=== PATIENT | male | born 1950 | race Caucasian/White ===

== ENCOUNTER 2020-08-12 08:15 | Day surgery (SDC) | payer BC ==
[~2020-08-12] VITALS: Ht 185.4 cm; Wt 85.2 kg
[2020-08-12 08:45] VITALS: BP 146/73
[2020-08-12] MEDS ORDERED: ATOR20TA66 PO (08:48)
[2020-08-12] MEDS ORDERED: PANT40TA54 PO (08:48)
[2020-08-12] MEDS ORDERED: RAMI10CA69 PO (08:48)
[2020-08-12] MEDS ORDERED: INSU100I52 (08:52)
[2020-08-12] MEDS ORDERED: LANTUS SQ (08:52)
[2020-08-12] MEDS ORDERED: ASPI-611 PO (08:52)
[2020-08-12] MEDS ORDERED: METO5TAB98 PO (08:52)
[2020-08-12] MEDS ORDERED: normal saline 1000ml 1,000 ML IV SCH ×2 (09:00→09:30)
[2020-08-12] MEDS ORDERED: heparin sodium, porcine/PF 100unit/ml 5ML syringe ONE (09:13)
[2020-08-12] MEDS ORDERED: midazolam 2 mg/2 ml injection ONE ×2 (09:14→10:03)
[2020-08-12] MEDS ORDERED: LIDOcaine 1%/PF 5ML 10 MG/ML VIAL ONE (09:14)
[2020-08-12] MEDS ORDERED: fentaNYL/PF 50MCG/1 ML 2ML syringe ONE ×2 (09:14→10:03)
[2020-08-12 10:31] VITALS: BP 145/81
[2020-08-12 10:46] VITALS: BP 149/76
[2020-08-12 11:01] VITALS: BP 138/73
[2020-08-12 11:16] VITALS: BP 147/78
== END 2020-08-12 11:30 | disposition home or self-care (01) ==
LOC: SSTAY O 08:15
PROVIDERS: ATTEND Radiology Diagnostic Radiology
DX: C22.1 Intrahepatic bile duct carcinoma (principal); E11.319 Type 2 diabetes mellitus with unspecified diabetic retinopathy without macular edema; I10 Essential (primary) hypertension; E78.5 Hyperlipidemia, unspecified; Z98.890 Other specified postprocedural states
CPT/HCPCS: 36415; 36561; 76937; 82948; 87635; C1769; C1788; C1894; J1642; J2250; J3010; 99152; 99153

== ENCOUNTER 2020-09-20 06:27 | Emergency (ER) | payer BC ==
[~2020-09-20] VITALS: Ht 185.4 cm; Wt 85.5 kg
[~2020-09-20 06:27] MED LIST: ASPI-611 PO; ATOR20TA66 PO; INSU100I52; LANTUS SQ; METO5TAB98 PO; PANT40TA54 PO; RAMI10CA69 PO
--- NOTE | 2020-09-20 06:53 | NUR ---
BG 65. Dr. Moran aware. Patient given juice and crackers. Will monitor.
[2020-09-20 08:59] LABS: BASOPHILS % (AUTO) 0.2 % (0-1); EOSINOPHILS % (AUTO) 0.4 % (0-6); HEMATOCRIT 29.9 % (42.0-52.0); HEMOGLOBIN 9.6 g/dl (14.0-17.9); LYMPHOCYTES # (AUTO) 0.1 X10'3 (1.1-4.8); LYMPHOCYTES % (AUTO) 1.4 % (21-51); MEAN CORPUSCULAR HEMOGLOBIN 24.6 PG (27.0-31.0); MEAN CORPUSCULAR HGB CONC 31.9 g/dL (33.0-36.5); MEAN CORPUSCULAR VOLUME 77.1 FL (78-98); MEAN PLATELET VOLUME 8.9 FL (7.4-10.4); MONOCYTES # (AUTO) 0.4 X10'3 (0-0.9); MONOCYTES % (AUTO) 7.6 % (2-12); NEUTROPHILS # (AUTO) 4.3 X10'3 (1.8-7.7); NEUTROPHILS % (AUTO) 90.4 % (42-75); PLATELET COUNT 164 X10'3 (140-440); RED BLOOD COUNT 3.88 X10'6 (4.70-6.10); RED CELL DISTRIBUTION WIDTH 21.2 % (11.5-14.5); WHITE BLOOD COUNT 4.8 X10'3 (4.5-11.0)
[2020-09-20 09:36] LABS: ALANINE AMINOTRANSFERASE 31 U/L (12-78); ALBUMIN 3.1 G/DL (3.4-5.0); ALBUMIN/GLOBULIN RATIO 0.9 (1.1-1.5); ALKALINE PHOSPHATASE 290 IU/L (46-116); ANION GAP 11 (8-16); ASPARTATE AMINO TRANSFERASE 51 U/L (10-37); BILIRUBIN,TOTAL 0.6 MG/DL (0.1-1.0); BLOOD UREA NITROGEN 8 MG/DL (7-18); CALCIUM 8.1 MG/DL (8.5-10.1); CHLORIDE 107 MMOL/L (99-107); CREATININE 0.47 MG/DL (0.60-1.10); GLUCOSE 170 MG/DL (70-104); POTASSIUM 3.2 MMOL/L (3.5-5.1); SODIUM 146 MMOL/L (135-145); TOTAL PROTEIN 6.5 G/DL (6.4-8.2); eGFR > 90 ML/MIN
[2020-09-20 10:14] LABS: HYPOCHROMASIA 1+; PLATELET ESTIMATE NORMAL; POLYCHROMASIA 1+
[2020-09-20 10:15] LABS: ANISOCYTOSIS 3+; BURR CELLS 1+; MICROCYTOSIS 1+
[2020-09-20 10:48] VITALS: BP 167/79
[2020-09-20 12:09] LABS: HEMOGLOBIN A1C 8.3 % (4.5-6.2)
== END 2020-09-20 10:49 | disposition home or self-care (01) ==
LOC: ER 06:27
DX: E11.649 Type 2 diabetes mellitus with hypoglycemia without coma (principal); Z79.82 Long term (current) use of aspirin; Z79.899 Other long term (current) drug therapy
CPT/HCPCS: 36415; 80053; 82948; 83036; 85008; 85025; 93005; 99284

== ENCOUNTER 2020-09-24 19:18 | Emergency (ER) | payer BC ==
[~2020-09-24] VITALS: Ht 185.4 cm; Wt 86.4 kg
[2020-09-24 20:12] LABS: BASOPHILS % (AUTO) 0.2 % (0-1); EOSINOPHILS % (AUTO) 0.3 % (0-6); HEMATOCRIT 30.1 % (42.0-52.0); HEMOGLOBIN 9.8 g/dl (14.0-17.9); LYMPHOCYTES # (AUTO) 0.2 X10'3 (1.1-4.8); LYMPHOCYTES % (AUTO) 2.9 % (21-51); MEAN CORPUSCULAR HEMOGLOBIN 24.6 PG (27.0-31.0); MEAN CORPUSCULAR HGB CONC 32.4 g/dL (33.0-36.5); MEAN CORPUSCULAR VOLUME 75.8 FL (78-98); MONOCYTES # (AUTO) 0.5 X10'3 (0-0.9); MONOCYTES % (AUTO) 7.5 % (2-12); NEUTROPHILS # (AUTO) 5.8 X10'3 (1.8-7.7); NEUTROPHILS % (AUTO) 89.1 % (42-75); PLATELET COUNT 172 X10'3 (140-440); RED BLOOD COUNT 3.97 X10'6 (4.70-6.10); RED CELL DISTRIBUTION WIDTH 22.5 % (11.5-14.5); WHITE BLOOD COUNT 6.5 X10'3 (4.5-11.0)
[2020-09-24 20:21] LABS: ALANINE AMINOTRANSFERASE 36 U/L (12-78); ALBUMIN 3.2 G/DL (3.4-5.0); ALBUMIN/GLOBULIN RATIO 0.9 (1.1-1.5); ALKALINE PHOSPHATASE 290 IU/L (46-116); ANION GAP 11 (8-16); ASPARTATE AMINO TRANSFERASE 59 U/L (10-37); BILIRUBIN,TOTAL 0.9 MG/DL (0.1-1.0); BLOOD UREA NITROGEN 9 MG/DL (7-18); BUN/CREATININE RATIO 12.5 (5.4-32.0); CALCIUM 8.1 MG/DL (8.5-10.1); CHLORIDE 104 MMOL/L (99-107); CREATINE KINASE 555 U/L (39-308); CREATININE 0.72 MG/DL (0.60-1.10); GLUCOSE 180 MG/DL (70-104); LIPASE < 50 U/L (73-393); POTASSIUM 3.2 MMOL/L (3.5-5.1); SODIUM 144 MMOL/L (135-145); TOTAL CARBON DIOXIDE 29.3 MMOL/L (24-32); TOTAL PROTEIN 6.6 G/DL (6.4-8.2); eGFR > 90 ML/MIN
[2020-09-24 20:24] LABS: CLARITY,URINE CLEAR (Clear); COLOR,URINE YELLOW (Yellow); GLUCOSE, URINE 100 mg/dl (Neg); KETONES,URINE 40 mg/dl (Neg); LEUKOCYTE ESTERASE ,URINE NEGATIVE (Neg); NITRITES, URINE NEGATIVE (Neg); OCCULT BLOOD,URINE NEGATIVE (Neg); PROTEIN,URINE NEGATIVE (Neg)
[2020-09-24] MEDS ORDERED: normal saline 1000ML IV soln IVB ONE (20:55)
[2020-09-24 21:00] LABS: UA COLLECTION TYPE CLN CATCH MIDSTREAM
[2020-09-24 22:11] VITALS: BP 162/79
== END 2020-09-24 22:14 | disposition home or self-care (01) ==
LOC: ER 19:18
DX: E10.649 Type 1 diabetes mellitus with hypoglycemia without coma (principal); E86.0 Dehydration; Z79.82 Long term (current) use of aspirin; Z79.4 Long term (current) use of insulin; Z79.899 Other long term (current) drug therapy; Z85.9 Personal history of malignant neoplasm, unspecified
CPT/HCPCS: 36415; 80053; 81003; 82550; 82948; 83605; 83690; 85025; 96360; 99284; J7030

== ENCOUNTER → 2020-12-22 | Emergency (ER) | payer BC, MEDICARE ==
[~2020-12-22] VITALS: Ht 185.4 cm; Wt 80.0 kg
[~2020-12-22] MED LIST changes: +LORazepam 2 mg/ml vial IV ONE; +normal saline 1000ML IV soln IVB ONE; +normal saline 1000ml 1,000 ML IV ONE; +ondansetron/PF 4mg/2ml inj IV ONE; +piperacillin/tazo 3.375gm/50ml 50 ML IV ONE; +proCHLORperazine 10 MG/2 ml inj IV ONE
[2020-12-22 16:23] LABS: EOSINOPHILS % (AUTO) 0.3 % (0-6); HEMOGLOBIN 9.4 g/dl (14.0-17.9); MEAN PLATELET VOLUME 8.2 FL (7.4-10.4); NEUTROPHILS # (AUTO) 0.8 X10'3 (1.8-7.7); RED CELL DISTRIBUTION WIDTH 17.3 % (11.5-14.5)
[2020-12-22 16:25] LABS: BASOPHILS % (AUTO) 0.3 % (0-1); HEMATOCRIT 28.1 % (42.0-52.0); MEAN CORPUSCULAR HEMOGLOBIN 29.2 PG (27.0-31.0); MEAN CORPUSCULAR HGB CONC 33.4 g/dL (33.0-36.5); MEAN CORPUSCULAR VOLUME 87.6 FL (78-98); MONOCYTES % (AUTO) 2.7 % (2-12); NEUTROPHILS % (AUTO) 92.7 % (42-75); PLATELET COUNT 177 X10'3 (140-440); RED BLOOD COUNT 3.21 X10'6 (4.70-6.10)
[2020-12-22 16:29] LABS: WHITE BLOOD COUNT 0.9 X10'3 (4.5-11.0)
[2020-12-22 16:37] LABS: ALANINE AMINOTRANSFERASE 211 U/L (12-78); ALBUMIN 2.2 G/DL (3.4-5.0); ALBUMIN/GLOBULIN RATIO 0.7 (1.1-1.5); ANION GAP 23 (8-16); ASPARTATE AMINO TRANSFERASE 294 U/L (10-37); BILIRUBIN,TOTAL 2.1 MG/DL (0.1-1.0); BLOOD UREA NITROGEN 21 MG/DL (7-18); BUN/CREATININE RATIO 21.6 (5.4-32.0); CALCIUM 7.7 MG/DL (8.5-10.1); CHLORIDE 95 MMOL/L (99-107); CREATININE 0.97 MG/DL (0.60-1.10); GLUCOSE 392 MG/DL (70-104); SODIUM 134 MMOL/L (135-145); TOTAL CARBON DIOXIDE 16.2 MMOL/L (24-32); TOTAL PROTEIN 5.4 G/DL (6.4-8.2); eGFR 77 ML/MIN
[2020-12-22 16:39] LABS: ALKALINE PHOSPHATASE 1491 IU/L (46-116); LIPASE < 50 U/L (73-393)
[2020-12-22 17:10] LABS: TOTAL CELLS COUNTED 100
[2020-12-22 17:11] LABS: ANISOCYTOSIS 1+; PLATELET ESTIMATE NORMAL; POIKILOCYTOSIS FEW
[2020-12-22 23:48] LABS: ALANINE AMINOTRANSFERASE 201 U/L (12-78); ALBUMIN/GLOBULIN RATIO 0.6 (1.1-1.5); ANION GAP 22 (8-16); ASPARTATE AMINO TRANSFERASE 216 U/L (10-37); BILIRUBIN,TOTAL 1.8 MG/DL (0.1-1.0); BLOOD UREA NITROGEN 20 MG/DL (7-18); BUN/CREATININE RATIO 20.6 (5.4-32.0); CALCIUM 7.7 MG/DL (8.5-10.1); CHLORIDE 98 MMOL/L (99-107); CREATININE 0.97 MG/DL (0.60-1.10); GLUCOSE 389 MG/DL (70-104); POTASSIUM 3.7 MMOL/L (3.5-5.1); SODIUM 135 MMOL/L (135-145); TOTAL PROTEIN 5.3 G/DL (6.4-8.2); eGFR 77 ML/MIN
[2020-12-23 00:04] LABS: ALKALINE PHOSPHATASE 1319 IU/L (46-116)
[2020-12-23 00:05] LABS: TOTAL CARBON DIOXIDE 14.9 MMOL/L (24-32)
--- NOTE | 2020-12-23 02:35 | NUR ---
pt up to use urinal with assistance, weak
[2020-12-23 03:04] LABS: CLARITY,URINE CLOUDY (Clear); COLOR,URINE YELLOW (Yellow); GLUCOSE, URINE 500 mg/dl (Neg); KETONES,URINE >=80 mg/dl (Neg); LEUKOCYTE ESTERASE ,URINE NEGATIVE (Neg); NITRITES, URINE NEGATIVE (Neg); OCCULT BLOOD,URINE NEGATIVE (Neg); PH,URINE 5.5 (4.8-8.0); PROTEIN,URINE NEGATIVE (Neg)
[2020-12-23 03:20] LABS: UA COLLECTION TYPE URINAL
[2020-12-23 03:21] LABS: WBC,URINE 0-4 /HPF (0-4)
[2020-12-23 03:22] LABS: BACTERIA,URINE FEW /HPF (Neg); SQUAMOUS EPITHELIAL CELL,UR FEW /LPF (FEW); YEAST MANY /HPF (NEGATIVE)
[2020-12-23 06:46] VITALS: BP 120/56
== END | disposition home or self-care (01) ==
LOC: ER 15:46
DX: D70.9 Neutropenia, unspecified (principal); R74.01 Elevation of levels of liver transaminase levels
CPT/HCPCS: 36415; 71250; 74176; 76700; 80053; 80329; 81001; 83605; 83690; 84145; 85007; 85025; 87040; 87635; 96361; 96365; 96366; 96375; 96376; 99291; 99292; C9803; J0780; J2405; J2543; J7030; J2060